=== PATIENT | female | born 1990 | race Two or more races ===

== ENCOUNTER 2025-02-23 10:38 | Outpatient (AMB) | payer MEDICAID, SELFPAY ==
--- NOTE | 2025-02-23 11:01 | AMB.OBINITIA ---
Vital Signs 02/23/25 11:02 Weight 78.585 kg Weight Measurement Method Standing Scale BP 100/65 Blood Pressure Source Automatic Cuff Blood Pressure Location Right Upper Arm Position Sitting Respiration 17 Pulse 75 Pulse Source Monitor Temp 97.5 F Temp Source Temporal Artery Scan Pulse Oximetry (%) 98 Oxygen Delivery Method Room Air Allergies/Home Meds Allergies & Medications Allergies No Known Allergies Allergy (Verified 02/23/25 11:02) Medication Reconciliation vitamin-ferrous fumarate 28 mg iron-folic acid 800 mcg tablet ( Vitamins with Minerals) 1 tab PO QDAY #60 tabs 02/23/25 [Rx] Intake Visit Data Collection New Patient or Established: Established Patient (seen at [facility] within 3 years) Reason for Visit:: OBI Seen by Clinical Staff ONLY (RN/MA): No Terminal Gauger Required: Yes Terminal Gauger's name/title: LITTLE CHENG MA Do You Feel Safe at Home: Yes Authorities Contacted: N/A PCP or OBGYN visit in last 3 months: No Hx Now: Yes Are you currently on any form of Control: No Pain Present Currently: Yes Pain Location: Abdomen Pain Scale Used: Joseph-Camacho/Numerical Pain scale:: 7 Smoking Status Smoking Status: Never smoker Questionnaires Covid-19 Vaccine Questionnaire Has patient been vacinated for Covid-19 Have you been vacinated for Covid-19: No PHQ-9 PHQ-2 Over the last 2 weeks, how often have you been bothered by any of the following problems? 1. Little interest or pleasure in doing things: not at all 2. Feeling down, depressed, or hopeless: not at all Total score: 0 PHQ-9 3. Trouble falling or staying asleep, or sleeping too much: Not at all 4. Feeling tired or having little energy: Not at all 5. Poor appetite or overeating: Not at all 6. Feeling bad about yourself - or that you are a failure or have let yourself or your family down: Not at all 7. Trouble concentrating on things, such as reading the newspaper or watching television: Not at all 8. Moving or speaking so slowly that other people could have noticed? - Or the opposite - being so fidgety or restless that you have been moving around a lot more than usual: not at all 9. Thoughts that you would be better off or of hurting yourself in some way: Not at all Total score: 0 If you checked off any problems, how difficult have these problems made it for you to do your work, take care of things at home, or get along with other people?: not difficult at all Source: Developed by Drs. Tristan Newton, Shanda Watson, Toby Tatum and colleagues, with an educational bhargav from [employer]. Depression screen completed yes Social History Living Situation History Marital Status: Lives With: Family Housing: House Tobacco History Smoking Status: Never smoker Second Hand Smoke Exposure: No Alcohol History Alcohol Intake: Never Domestic Abuse History Do You Feel Safe at Home: Yes History of Present Illness HPI Narrative 34-year-old 6 para 5 for OBI. Patient had a positive test at [facility] [employer] [facility]. She is not real sure about her last dates she thinks LMP October 17, 2024. And her estimated due date July 25, 2025. Denies social habits. Patient had a lap musa 2022. And she denies any existing chronic health issues. Reports light movement. She denies leaking, bleeding, cramps. 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 Her last. Was . Estimated due date July 25, 2025. Patient needs a prescription for prenatals. She has had no problems so far with the . Reports slight movement. NIPT, AFP Carrier screen, hemoglobin A1c and OB panel today. Scheduled ultrasound appointment with Dr. Valentine for anatomy scan. I ordered prescription for prenatals. Patient to increase fluids and return in 4 weeks OB check Menstrual History Menstrual reliability: approximate (month known) Flow: normal Menstrual regularity: regular Monthly: Yes Age at menarche: 14 OB History : 6 Para: 5 # of Living Children: 5 Infection History & Risk Evaluation History of STDs: none Genetic Screening & History Genetic Screening/Teratology Counseling - Includes patient, baby's father, or anyone in either family with: 1. Patient's age 35 years or older as of estimated date of delivery: No 2. Thalassemia (Russian, Guatemalan, Mediterranean, or Background); MCV less than 80: No 3. Neural Tube Defect (Meningomyelocele, Spina Bifida, or Anencephaly): No 4. Congenital Heart Defect: No 5. Down Syndrome: No 6. Spencer-Sachs (Ashkenazi Anabaptist, Cajun, Malian [place]): No 7. Juan Carlos Disease (Ashkenazi Anabaptist): No 8. Familial Dysautonomia (Ashkenazi Anabaptist): No 9. Sickle Cell Disease or Trait (): No 10. Hemophilia or other blood disorders: No 11. Muscular Dystrophy: No 12. Cystic Fibrosis: No 13. Maurizio's Chorea: No 14. Mental Retardation/Autism: No 15. Other inherited genetic or chromosomal disorder: No 16. Maternal Metabolic Disorder (EG,TYPE 1 Diabetes, PKU): No 17. Patient or baby's father had a child with defects not listed above: No 18. Recurrent loss or a stillbirth: No 19. Medications (including supplements, vitamins, herbs or otc drugs)/illicit/recreational drugs/alcohol since last menstrual period: No 20. Any other: No Infection History 1. Live with someone with TB or exposed to TB: No 2. Rash or viral illness since last menstrual period: No Other (see comments) Source: [employer] Review of Systems Review of Systems Systems Reviewed: All systems reviewed, normal except as documented Exam General Limitations: no limitations General Appearance: alert, in no apparent distress, comfortable, cooperative, healthy appearing, well developed and well groomed Neck Neck exam: Present normal inspection, full ROM and trachea midline Chest Chest inspection: Present normal inspection and symmetric chest wall rise Resp Respiratory exam: Present normal lung sounds bilaterally Card Cardiovascular exam: Present regular rate, normal rhythm and normal heart sounds Abdominal Abdominal exam: Present soft and normal bowel sounds Psych Psychiatric exam: Present normal affect and normal mood Results Objective Laboratory: + preg test Office Procedures OBC Clinic LOC & Office Proc's Nursing/Assessment Patient Status: Established Patient OB Clinic Nursing Assessment: Medication Reconciliation, Update PMH in EMR and Vital Signs OB Clinic Coordination of Care: Complex Care and Chronic Disease 1-5, Education Complex Pt/Fam, Consent,records obtained, informed consent, Results/Orders obtained and Staff clarify orders Special Needs: Heart tones Established Patient Charge Established Patient Point Assignment: 125 Established Patient Point Charge: EP Level 4 (120-155) Results Urine HCG Urine HCG Positive Last Edit by Gauri Rao MA on 02/23/25 11:15 Assessment & Plan Diagnosis / Problem List (1) Encounter for supervision of high risk in second trimester, antepartum: Status: Acute Plan Ordered vitamins. Schedule with maternal- medicine Dr. Valentine for anatomy scan and growth chart. OB panel with NIPT, AFP, carrier screens and A1c and RPR today. Discussed labor precautions. Increase fluids. Return in 4 weeks OB check Additional Plan Follow Up: 4 Weeks (obc)
[2025-02-23 11:02] VITALS: BP 100/65; PULSE 75; RESP 17; TEMP 36.4; O2SAT 98
== END 2025-02-23 11:36 | disposition home or self-care (01) ==
LOC: HODSOBC 10:38
PROVIDERS: Supervising Provider Advanced Practice Midwife; Visit Provider Advanced Practice Midwife
DX: O09.42 Supervision of pregnancy with grand multiparity, second trimester (principal); Z3A.18 18 weeks gestation of pregnancy
CPT/HCPCS: 99214; G0463

== ENCOUNTER 2025-03-25 12:58 | Outpatient (AMB) | payer MEDICAID, SELFPAY ==
[2025-03-25 13:07] VITALS: BP 102/68; PULSE 74; RESP 16; TEMP 36.4; O2SAT 97; BMI 32.0
--- NOTE | 2025-03-25 13:07 | OBCLNT_ITS ---
Vital Signs 03/25/25 13:07 Height 1.57 m Height Method Stated Weight 79.379 kg Weight Measurement Method Standing Scale BMI 32.0 BP 102/68 Blood Pressure Source Automatic Cuff Blood Pressure Location Left Upper Arm Position Sitting Respiration 16 Pulse 74 Pulse Source Monitor Temp 97.6 F Temp Source Oral Pulse Oximetry (%) 97 Oxygen Delivery Method Room Air Allergies/Home Meds Allergies & Medications Allergies No Known Allergies Allergy (Verified 03/25/25 13:08) Medication Reconciliation vitamin-ferrous fumarate 28 mg iron-folic acid 800 mcg tablet ( Vitamins with Minerals) 1 tab PO QDAY #60 tabs 02/23/25 [Rx Confirmed 03/25/25] Intake Visit Data Collection New Patient or Established: Established Patient (seen at [facility] within 3 years) Reason for Visit:: CARE Seen by Clinical Staff ONLY (RN/MA): No [place]uillon Debeader Required: No Do You Feel Safe at Home: Yes Authorities Contacted: N/A PCP or OBGYN visit in last 3 months: Yes Hx Now: Yes Are you currently on any form of Control: No Pain Present Currently: No Pain Scale Used: Joseph-Camacho/Numerical Pain scale:: 0 Smoking Status Smoking Status: Never smoker Immunizations Flu Vaccine in the Last 12 Months: Yes Flu Vaccine Exclusion Criteria: Refused by Patient Questionnaires Covid-19 Vaccine Questionnaire Has patient been vacinated for Covid-19 Have you been vacinated for Covid-19: Yes PHQ-9 PHQ-2 Over the last 2 weeks, how often have you been bothered by any of the following problems? 1. Little interest or pleasure in doing things: not at all 2. Feeling down, depressed, or hopeless: not at all Total score: 0 PHQ-9 3. Trouble falling or staying asleep, or sleeping too much: Not at all 4. Feeling tired or having little energy: Not at all 5. Poor appetite or overeating: Not at all 6. Feeling bad about yourself - or that you are a failure or have let yourself or your family down: Not at all 7. Trouble concentrating on things, such as reading the newspaper or watching television: Not at all 8. Moving or speaking so slowly that other people could have noticed? - Or the opposite - being so fidgety or restless that you have been moving around a lot more than usual: not at all 9. Thoughts that you would be better off or of hurting yourself in some way: Not at all Total score: 0 Source: Developed by Drs. Tristan Newton, Shanda Watson, Toby Tatum and colleagues, with an educational bhargav from [employer]. 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 Her last. Was . Estimated due date July 25, 2025. Patient needs a prescription for prenatals. She has had no problems so far with the . Reports slight movement. NIPT, AFP Carrier screen, hemoglobin A1c and OB panel today. Scheduled ultrasound appointment with Dr. Valentine for anatomy scan. I ordered prescription for prenatals. Patient to increase fluids and return in 4 weeks OB check 03/25/25 -?-?-?-?-?-?-?-?-?-?-?-?- 22w 5d 79.379 kg 102/68 absent unknown 22 135 active Fetus active. Discussed lab results. No OB complaints Maternal- medicine sono is pending. Discussed precautions. Fluids continue prenatals return in 4 weeks OB check JESSICA Calculator Estimated Delivery Date Method Current WG Current Estimate 07/24/25 LMP (Uncertain) 22w 5d Notes Visit Date: 03/25/25 Last Updated by: Maranda Scott CNM AFP/nipt and carrier screen-, O+,abs-,rpr;;nr, rub imm, hbsag-,hiv-,hc-, GC/CT-, A1: 5.412/37 Visit Date: 02/23/25 Last Updated by: Maranda Scott CNM 34yo . LMP 10/17/24. EDC: 07/25/25 Office Procedures OBC Clinic LOC & Office Proc's Nursing/Assessment Patient Status: Established Patient OB Clinic Nursing Assessment: Medication Reconciliation, Update PMH in EMR and Vital Signs OB Clinic Coordination of Care: Complex Care and Chronic Disease 1-5, Consent,records obtained, informed consent, Education Simp Pt/Fam, 1 Ins Authorization, Lab and Imaging orders, Results/Orders obtained and Staff clarify orders Special Needs: Heart tones Established Patient Charge Established Patient Point Assignment: 150 Established Patient Point Charge: EP Level 4 (120-155) Assessment & Plan Diagnosis / Problem List (1) Encounter for supervision of high risk in second trimester, antepartum: Status: Acute Plan Maternal- medicine sono pending. Discussed labor precautions. Increase fluids. Return in 4 weeks OB check Additional Plan Follow Up: 4 Weeks (obc)
== END 2025-03-25 13:15 | disposition home or self-care (01) ==
LOC: HODSOBC 12:58
PROVIDERS: Supervising Provider Advanced Practice Midwife; Visit Provider Advanced Practice Midwife
DX: O09.42 Supervision of pregnancy with grand multiparity, second trimester (principal); Z3A.22 22 weeks gestation of pregnancy
CPT/HCPCS: 99214; G0463